=== PATIENT | male | born 1995 | race Caucasian/White ===

== ENCOUNTER 2018-01-03 11:30 | Emergency (ER) | payer BC, OTHER ==
[2018-01-03 11:58] VITALS: BP 126/64
--- NOTE | 2018-01-03 12:57 | RAD ---
HISTORY: hyperextension with weighted object COMPARISONS: November 29, 2008 VIEWS: 3 , Frontal, lateral, and oblique views of the left foot FINDINGS: BONE DENSITY: Normal. BONES: There is a small bone fragment along the dorsal surface of the navicular bone best seen on the lateral view. There is no Lisfranc deformity. JOINTS: There is no arthropathy. ALIGNMENT: There is no dislocation. SOFT TISSUES: Unremarkable. OTHER FINDINGS: None. IMPRESSION: FINDINGS SUGGESTIVE OF AN AVULSION INJURY OF THE DORSAL ASPECT OF THE NAVICULAR bone.
--- NOTE | 2018-01-03 13:05 | UC ---
Lower Extremity/Ankle HPI - HPI Summary HPI Summary: Pt c/o left foot pain after having foot caught underneath heavy wagon bernarda shultz 100lb+ rocks. foot hyperplantar flexed and pt reports sudden onset of pain, heard, "snaps, crakles and pops" and now can not bear weight on left foot. - History of Current Complaint Chief Complaint: UCLowerExtremity Stated Complaint: LEFT FOOT INJURY Time Seen by Provider: 01/03/18 11:56 Hx Obtained From: Patient Onset/Duration: Sudden Onset, Lasting Hours, Still Present Severity Initially: Severe Severity Currently: Moderate Pain Intensity: 7 Aggravating Factor(s): Standing, Ambulation Alleviating Factor(s): Rest, Elevation Able to Bear Weight: No - Risk Factors Gout Risk Factors: Male DVT Risk Factors: Negative Septic Arthritis Risk Factor: Negative - Allergies/Home Medications Allergies/Adverse Reactions: Allergies Allergy/AdvReac Type Severity Reaction Status Date / Time No Known Allergies Allergy Verified 01/03/18 11:56 Home Medications: Home Medications Ibuprofen TAB* [Advil TAB*] 1,000 mg PO ONCE 01/03/18 [History Confirmed ] PMH/Surg Hx/FS Hx/Imm Hx Previously Healthy: Yes Other History Of: Negative For: HIV, Hepatitis B, Hepatitis C - Surgical History Surgical History: None - Family History Known Family History: Positive: Cardiac Disease - Social History Occupation: Employed Full-time Lives: With Family Alcohol Use: None Substance Use Type: None Smoking Status (MU): Light Every Day Tobacco Smoker Type: Smokeless Tobacco Amount Used/How Often: 1/4 PPD Length of Time of Smoking/Using Tobacco: Since Age 17 Have You Smoked in the Last Year: Yes - Immunization History Most Recent Influenza Vaccination: unsure Most Recent Tetanus Shot: Last 5 years Vaccination Up to Date: Yes Review of Systems Constitutional: Negative Skin: Bruising Eyes: Negative ENT: Negative Respiratory: Negative Cardiovascular: Negative Gastrointestinal: Negative Genitourinary: Negative Motor: Negative Neurovascular: Negative Musculoskeletal: Negative Neurological: Negative Psychological: Negative Is Patient Immunocompromised?: No All Other Systems Reviewed And Are Negative: Yes Physical Exam Triage Information Reviewed: Yes Appearance: Pain Distress Vital Signs: Initial Vital Signs Temp 98.4 F 01/03/18 11:52 Pulse 78 01/03/18 11:52 Resp 16 01/03/18 11:52 BP 126/64 09/30/18 11:52 Pulse Ox 100 01/03/18 11:52 Vital Signs Reviewed: Yes Eye Exam: Normal ENT Exam: Normal Dental Exam: Normal Neck exam: Normal Respiratory Exam: Normal Musculoskeletal: Positive: Strength Limited @ - left foot, ROM Limited @ - left foot, Edema @ - left foot Neurological Exam: Normal Psychological Exam: Normal Skin Exam: Other - bruise mid anterior left foot Diagnostics - Radiology No standard instances Radiology Interpretation Completed By: Radiologist - IMPRESSION: FINDINGS SUGGESTIVE OF AN AVULSION INJURY OF THE DORSAL ASPECT OF THE NAVICULAR bone. Lower Extremity Course/Dx - Differential Dx/Diagnosis Differential Diagnosis/HQI/PQRI: Contusion, Fracture (Closed), Strain Provider Diagnoses: left foot fracture Discharge - Sign-Out/Discharge Documenting (check all that apply): Patient Departure All imaging exams completed and their final reports reviewed: Yes - Discharge Plan Condition: Stable Disposition: HOME Patient Education Materials: Foot Fracture in Adults (ED) Referrals: Dilshad Robles MD [Medical Doctor] - As Soon As Possible Summer Griffin RN [Primary Care Provider] - If Needed - Billing Disposition and Condition Condition: STABLE Disposition: Home
== END 2018-01-03 13:26 | disposition home or self-care (01) ==
LOC: UCCORT 11:30
DX: S92.255A Nondisplaced fracture of navicular [scaphoid] of left foot, initial encounter for closed fracture (principal); W23.0XXA Caught, crushed, jammed, or pinched between moving objects, initial encounter; Y93.89 Activity, other specified; Y92.9 Unspecified place or not applicable; F17.210 Nicotine dependence, cigarettes, uncomplicated
CPT/HCPCS: 99213; G0463